=== PATIENT | female | born 1975 | race Caucasian/White ===

== ENCOUNTER 2016-03-23 09:51 | Emergency (ER) | payer MEDICAID, OTHER ==
[~2016-03-23] VITALS: Ht 160 cm; Wt 83.0 kg
[2016-03-23 09:52] VITALS: BP 120/72; PULSE 75; RESP 12; TEMP 98.4; O2SAT 100
[2016-03-23] MEDS ORDERED: CANA100T PO (10:08)
[2016-03-23] MEDS ORDERED: METF500T PO (10:08)
[2016-03-23] MEDS ORDERED: GLIM2TAB PO (10:08)
[2016-03-23] MEDS ORDERED: CIPR-9 PO (10:08)
--- NOTE | 2016-03-23 10:17 | PD ---
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 Patient reports that she was seen at another hospital 10 days ago, reports that at that time, she had similar symptoms but had pelvic discomfort. She reports that she was diagnosed with chlamydia as well as a urinary tract infection. Patient reports that she was sent home with a prescription for Cipro for her UTI, reports that she has one more day of this antibiotic and reports that her symptoms have been continuous. Patient reports that her pelvic discomfort has since resolved. She has not had any sexual activity since she was treated for her chlamydia. She denies fevers or chills. Patient denies nausea or vomiting. Patient denies abdominal pain. Patient denies flank pain. Patient here for recheck of possible UTI PFS Past Medical History Diabetes: Yes Patient Takes Glucophage: No Tetanus Vaccination: Unknown ?: Unknown LMP: 02/11/16 Past Surgical History Surgical History: No Previous Surgery Family History Family History: Negative Social History Alcohol Use: No Tobacco Use: No Substance Use: No Allergies-Medications (Allergen,Severity, Reaction): Coded Allergies: No Known Allergies (Unverified , 03/23/16) Reported Meds & Prescriptions Reported Meds & Active Scripts Active Reported Cipro (Ciprofloxacin HCl) 500 Mg Tab 500 Mg PO BID Invokana (Canagliflozin) 100 Mg Tab 100 Mg PO DAILY Take before 1st meal of day. Metformin (Metformin HCl) 500 Mg Tab 500 Mg PO BIDPC With meals Glimepiride 2 Mg Tab 2 Mg PO BIDAC Review of Systems General / Constitutional: No: Fever, Chills Eyes: No: Visual changes HENT: No: Headaches Cardiovascular: No: Chest Pain or Discomfort Respiratory: No: Shortness of Breath Gastrointestinal: No: Nausea, Vomiting, Abdominal Pain Genitourinary: Positive: Urgency, Frequency, Dysuria, Hesitancy, No: Hematuria Musculoskeletal: No: Pain Skin: No Rash Neurologic: No: Weakness Psychiatric: No: Depression Endocrine: No: Polydipsia Hematologic/Lymphatic: No: Easy Bruising Physical Exam Narrative GENERAL: No acute distress, nontoxic SKIN: Warm and dry. HEAD: Atraumatic. Normocephalic. ENT: No nasal bleeding or discharge. Mucous membranes pink and moist. NECK: Trachea midline. No JVD. CARDIOVASCULAR: Regular rate and rhythm. No murmur appreciated. RESPIRATORY: No accessory muscle use. Clear to auscultation. Breath sounds equal bilaterally. GASTROINTESTINAL: Abdomen soft, non-tender, nondistended. Hepatic and splenic margins not palpable. NEUROLOGICAL: Awake and alert. Motor grossly within normal limits. Normal speech. PSYCHIATRIC: Appropriate mood and affect; insight and judgment normal. Data Data Last Documented VS Vital Signs Date Time Temp Pulse Resp B/P Pulse Ox O2 Delivery O2 Flow Rate FiO2 03/23/16 09:52 98.4 75 12 120/72 100 Room Air Orders Urinalysis - C+S If Indicated (03/23/16 10:01) Ed Urine Pregnancytest Poc (03/23/16 10:01) Gc And Chlamydia Pcr (03/23/16 10:15) Nitrofurantoin Monohyd Macrocr (Macrobid (03/23/16 10:45) Labs Laboratory Tests Test 03/23/16 10:17 Urine Color YELLOW Urine Turbidity HAZY Urine pH 5.0 Urine Specific [place] 1.038 Urine Protein NEG mg/dL Urine Glucose (UA) 1000 mg/dL Urine Ketones 40 mg/dL Urine Occult Blood TRACE Urine Nitrite NEG Urine Bilirubin NEG Urine Urobilinogen LESS THAN 2.0 MG/DL Urine Leukocyte Esterase SMALL Urine RBC 2 /hpf Urine WBC 3 /hpf Urine Squamous Epithelial 8 /hpf Cells Urine Bacteria OCC /hpf Urine Hyaline Casts 1 /lpf Microscopic Urinalysis Comment CULT NOT INDICATED MDM Medical Decision Making Medical Screen Exam Complete: Yes Emergency Medical Condition: Yes Interpretation(s) Vital Signs Date Time Temp Pulse Resp B/P Pulse Ox O2 Delivery O2 Flow Rate FiO2 03/23/16 09:52 98.4 75 12 120/72 100 Room Air Differential Diagnosis UTI, pyelonephritis, cervicitis Narrative Course Patient is a 40-year-old female who presents to emergency room with complaints of continued urinary urgency frequency and dysuria. Patient has been on a course of Cipro, reports that she has one day left of her medication. Patient reports that she still symptomatic and is concerned that she may still have a urinary tract infection. Patient with no pelvic discomfort at this time, patient admits to being treated for a media 10 days ago at an outside hospital. Patient with no fever or chills. Patient with no abdominal pain or nausea or vomiting. Patient currently on Cipro, will obtain UA and reevaluated for possible UTI. Patient may be resistant to Cipro, and may need medication change at this time. Patient with positive test, patient notified of her . Reports that she is a week and a half late for her period. Patient denies any vaginal discharge or bleeding at this time. Reviewed UA with patient, patient is currently symptomatic, will start patient on Macrobid. Patient will follow up with all cultures from today. 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
[2016-03-23 10:39] LABS: BACTERIA, URINE OCC /hpf; BLOOD, URINE TRACE (NEG); GLUCOSE,URINE 1000 mg/dL (NEG); HYALINE CAST, URINE 1 /lpf (RARE); KETONE, URINE 40 mg/dL (NEG); NITRITE,URINE NEG (NEG); SQUAMOUS EPITHELIAL CELL URINE 8 /hpf (0-5); URINE COLOR YELLOW (YELLW/STRAW)
[2016-03-23 10:40] LABS: COMMENT (UR) CULT NOT INDICATED; CULTURE IF INDICATED CULT NOT INDICATED
[2016-03-23] MEDS ORDERED: NITROFURANTOIN MONOHYD MACROCR 100 MG CAP PO ONE (10:45)
[2016-03-23] MEDS ORDERED: MACR100C2 PO (12:07)
[2016-03-23 14:23] LABS: CHLAMYDIA PCR NOT DETECTED (NOT DETECT); NEISSERIA PCR NOT DETECTED (NOT DETECT)
== END 2016-03-23 12:24 | disposition home or self-care (01) ==
LOC: NEPA 09:51
DX: N30.01 Acute cystitis with hematuria (principal); O23.11 Infections of bladder in pregnancy, first trimester; Z3A.00 Weeks of gestation of pregnancy not specified
CPT/HCPCS: 81001; 84703; 87491; 87591; 99283

== ENCOUNTER 2016-10-02 11:06 | Emergency (ER) | payer MEDICAID, OTHER ==
[~2016-10-02 11:06] MED LIST: CANA100T PO; CIPR-9 PO; GLIM2TAB PO; MACR100C2 PO; METF500T PO
[2016-10-02 11:11] VITALS: BP 130/75; PULSE 87; RESP 17; TEMP 97.8; O2SAT 99
--- NOTE | 2016-10-02 12:38 | PD ---
HPI Date Seen: Oct 02, 2016 (Shantanu Colon MD R1) Travel History International Travel<30 Days: No Contact w/Intl Traveler<30Days: No (Shantanu Colon MD R1) History of Present Illness HPI 41-year-old at 33/3 weeks gestation presenting for vaginal itching. She is also noted some slight vaginal discharge, not foul-smelling. Denies vaginal bleeding, leakage of fluid, contractions. Endorses movement. Denies chest pain, shortness of breath, dysuria, fevers or chills. Of note, she was recently treated for urinary tract infection with Macrobid. (Shantanu Colon MD R1) History Past Medical History Medical History: Denies Significant Hx (Shantanu Colon MD R1) Obstetric History Obstetric History 3 prior pregnancies all delivered vaginally without complication (Shantanu Cloon MD) Past Surgical History Surgical History: No Previous Surgery (Shantanu Colon MD) Family History Family History: Negative (Shantanu Colon MD) Social History Alcohol Use: No Tobacco Use: No Substance Abuse: No (Shantanu Colon MD R1) Allergies-Medications (Allergen,Severity, Reaction): Coded Allergies: No Known Allergies (Unverified , 10/02/16) Home Meds Active Scripts Nitrofurantoin Monohydrate Macrocrystals (Macrobid)100 Mg [id number] Mg PO BID 10 Days Ref 0 Prov:Jyoti Goncalves DO 03/23/16 Reported Medications Ciprofloxacin (Cipro)500 Mg [id number] Mg PO BID Ref 0 03/23/16 Canagliflozin (Invokana)100 Mg [id number] Mg PO DAILY #30 TAB Ref 0 Take before 1st meal of day. 03/23/16 Metformin 500 Mg [id number] Mg PO BIDPC #60 TAB Ref 0 With meals 03/23/16 Glimepiride 2 Mg Tab2 Mg PO BIDAC #60 TAB Ref 0 03/23/16 Review of Systems Except as stated in HPI: all other systems reviewed are Neg (Shantanu Colon MD R1) Physical Exam Vital Signs Date Time Temp Pulse Resp B/P Pulse Ox O2 Delivery O2 Flow Rate FiO2 10/02/16 11:11 97.8 87 17 130/75 99 Room Air Narrative GENERAL: Well-nourished, well-developed patient. SKIN: Warm and dry. HEAD: Normocephalic and atraumatic. EYES: No scleral icterus. No injection or drainage. ENT: No nasal drainage noted. Mucous membranes pink. Airway patent. CARDIOVASCULAR: Regular rate and rhythm. RESPIRATORY: No accessory muscle use. ABDOMEN/GI: Abdomen soft, non-tender, no rebound, no guarding GENITOURINARY: Speculum exam revealing closed cervix without erythema or friability, copious amount of thin whitish vaginal discharge FHT's: Category: 1 Baseline: 130 Reactive: Y Variability: moderate Decels: N EXTREMITIES: No cyanosis or edema. NEUROLOGICAL: Awake and alert. Motor and sensory grossly within normal limits. Normal speech. (Shantanu Colon MD R1) Data Data Vital Signs Reviewed: Yes (Shantanu Colon MD R1) MDM Medical Record Reviewed: Yes Narrative Course / MDM 41-year-old at 33/3 weeks gestation presenting with vaginal itching #1 IUP Category 1 tracing, reassuring #2 yeast infection Advised patient to try clotrimazole cream vaginally twice daily, follow-up with DIPLOMATIC OFFICER if symptoms still to resolve after 5 days of treatment dw Dr. Lemon (Shantanu Colon MD R1) Attending Attestation 41 yo @ 33w3d with care with Dr. Puri in [place]. Uncomplicated . Patient was treated for a UTI 4 days ago and is on Macrobid. Patient presents with REENA with c/o a yeast infection. SSE confirms yeast vaginitis. She was instructed to try an OTC. There are 3d or 7d treatments to use nightly. No or complaints. CAT I FHT. No UC. She will f/ u with Dr. Puri. Patient seen and examined with Dr. Colon. (Angie Lemon MD) Diagnosis Diagnosis: Primary Impression: Yeast infection Additional Impressions: Vaginitis affecting in third trimester, antepartum 33 weeks gestation of Disposition: DISCHARGE HOME Condition: Good Shantanu Colon MD R1 Oct 02, 2016 12:38 Angie Lemon MD Oct 02, 2016 12:50
== END 2016-10-02 12:49 | disposition home or self-care (01) ==
LOC: HOBED 11:06
DX: O23.593 Infection of other part of genital tract in pregnancy, third trimester (principal); O98.813 Other maternal infectious and parasitic diseases complicating pregnancy, third trimester; Z3A.33 33 weeks gestation of pregnancy
CPT/HCPCS: 59025; 87210